=== PATIENT | female | born 1955 | race African-American/Black ===

== ENCOUNTER 2016-12-18 21:18 | Emergency (ER) | payer OTHER ==
[~2016-12-18] VITALS: Ht 152.4 cm; Wt 68.2 kg
[~2016-12-18 21:18] MED LIST: ACYCLOVIR400 MG PO; AMLODIPINE5 MG PO; AMOX/K CLAV875 M1 PO; ASPIRIN EC81 MG PO; ATENOLOL100 MG PO; CYCLOBENZAPR10 MG PO; DIABETA5 MG PO; FERROUS SULF325 M1 PO; FLUOXETINE20 MG PO; FLUTICASONE50 MCG; FUROSEMIDE40 MG PO; HUMIRA10 MG/0.2 SC; HYDROCHLOROT12.5 MG PO; HYDROXYCHLOR200 M1 PO; IBUPROFEN600 MG PO; KLOR-CON 1010 ME1 PO; LEVAQUIN500 MG PO; LISINOPRIL20 MG PO; LOPID600 MG PO; LORATADINE10 M1 PO; LORTAB5 PO; LOTRISONE CREAM15 GM EX; MACROBID100 MG OR; METFORMIN500 MG PO; METHYLPRED4 MG PO; MULTI VIT PO; NAPROSYN500 MG PO; NAPROXEN250 MG PO; NYAMYC100000 MG EX; PATADAY OU; PRAVASTATIN20 MG PO; PREDNISONE10 MG PO; PROAIR HFA IN; QVAR80 MCG IN; TRAMADOL HCL50 MG PO; [UNRECOGNIZED DRUG - REMARK]
[2016-12-18 22:01] LABS: HEMATOCRIT 31.5 % (37.0-47.0); HEMOGLOBIN 9.7 g/dl (12.0-16.0); IMMATURE GRANULOCYTES 0.5 % (0.0-1.0); MEAN CELL VOLUME 69.1 fL CALC (80.0-100.0); MEAN CORPUSCULAR HGB 21.3 pG CALC (26.0-32.0); MEAN CORPUSCULAR HGB CONC 30.8 g/L CALC (32.0-36.0); NEUT# 8.48 thou/uL (2.00-7.15); RED BLOOD COUNT 4.56 mill/uL (4.20-5.60); RED CELL DISTRI WIDTH 21.6 % (11.5-15.5)
[2016-12-18 22:19] LABS: INTERNATIONAL NORMALIZED RATIO 1.4 RATIO (0.7-1.3); PROTHROMBIN TIME 15.9 SECONDS (9.0-12.5)
[2016-12-18 23:10] LABS: ALBUMIN 3.2 g/dL (3.2-5.0); ALKALINE PHOSPHATASE 85 u/l (38-126); ANION GAP 15 (6-22 (CALC)); BILIRUBIN, TOTAL 0.9 mg/dL (0.0-1.4); BUN 10 mg/dL (8-23); BUN/CREATININE RATIO 18 (12-20 (CALC)); CALCIUM 7.2 mg/dL (8.4-10.2); CARBON DIOXIDE 28 mmol/l (22-30); CHLORIDE 101 mmol/l (95-108); CREATININE 0.5 mg/dL (0.5-1.0); GFR > 60 ML/MIN (>=60 (CALC)); GFR FOR AFR.AMER. > 60 ML/MIN (>=60 (CALC)); GLUCOSE 104 mg/dL (82-115); POTASSIUM 2.8 mmol/l (3.5-5.1); SGOT/AST 28 u/l (9-36); SGPT/ALT 15 u/l (11-66); SODIUM 142 mmol/l (137-146); TOTAL PROTEIN 8.6 g/dL (6.3-8.2)
[2016-12-18 23:22] LABS: MYOGLOBIN 72 ng/mL (0 - 62)
[2016-12-19 01:25] VITALS: BP 128/80
== END 2016-12-19 01:35 | disposition short-term general hospital (02) | DRG 291 ==
LOC: ED 21:18
PROVIDERS: Emergency Medicine
DX: I50.9 Heart failure, unspecified (principal); J18.9 Pneumonia, unspecified organism; Z99.81 Dependence on supplemental oxygen; J44.1 Chronic obstructive pulmonary disease with (acute) exacerbation; R79.89 Other specified abnormal findings of blood chemistry; R50.9 Fever, unspecified; R05 Cough; R06.02 Shortness of breath; R07.9 Chest pain, unspecified; I10 Essential (primary) hypertension; Z91.81 History of falling

== ENCOUNTER 2017-04-18 19:35 | Emergency (ER) | payer OTHER ==
[~2017-04-18] VITALS: Ht 160 cm; Wt 62.2 kg
[2017-04-18 20:35] LABS: HEMATOCRIT 35.4 % (37.0-47.0); HEMOGLOBIN 10.4 g/dl (12.0-16.0); IMMATURE GRANULOCYTES 0.2 % (0.0-1.0); MEAN CELL VOLUME 70.7 fL CALC (80.0-100.0); MEAN CORPUSCULAR HGB 20.8 pG CALC (26.0-32.0); MEAN CORPUSCULAR HGB CONC 29.4 g/L CALC (32.0-36.0); NEUT# 5.44 thou/uL (2.00-7.15); RED BLOOD COUNT 5.01 mill/uL (4.20-5.60); RED CELL DISTRI WIDTH 21.5 % (11.5-15.5)
[2017-04-18 20:49] LABS: ALBUMIN 3.3 g/dL (3.2-5.0); ALKALINE PHOSPHATASE 101 u/l (38-126); ANION GAP 16 (6-22 (CALC)); BILIRUBIN, TOTAL 0.5 mg/dL (0.0-1.4); BUN 14 mg/dL (8-23); BUN/CREATININE RATIO 23 (12-20 (CALC)); CARBON DIOXIDE 24 mmol/l (22-30); CHLORIDE 105 mmol/l (95-108); CREATININE 0.6 mg/dL (0.5-1.0); GFR > 60 ML/MIN (>=60 (CALC)); GFR FOR AFR.AMER. > 60 ML/MIN (>=60 (CALC)); POTASSIUM 4.7 mmol/l (3.5-5.1); SGOT/AST 22 u/l (9-36); SGPT/ALT 18 u/l (11-66); SODIUM 141 mmol/l (137-146)
[2017-04-18] MEDS ORDERED: LORTAB 1010 MG PO (23:05)
[2017-04-18] MEDS ORDERED: AMOX/K CLAV875 M1 PO (23:05)
[2017-04-18 23:29] VITALS: BP 195/95
[2017-05-02] MEDS ORDERED: CEFTRIAXONE2 G1 IJ (17:04)
== END 2017-04-18 23:22 | disposition home or self-care (01) | DRG 159 ==
LOC: ED 19:35
PROVIDERS: Emergency Medicine
DX: K04.7 Periapical abscess without sinus (principal); I11.0 Hypertensive heart disease with heart failure; I50.9 Heart failure, unspecified; Z99.81 Dependence on supplemental oxygen; E11.9 Type 2 diabetes mellitus without complications; J44.9 Chronic obstructive pulmonary disease, unspecified; M19.90 Unspecified osteoarthritis, unspecified site; S02.82XD Fracture of other specified skull and facial bones, left side, subsequent encounter for fracture with routine healing; W01.0XXD Fall on same level from slipping, tripping and stumbling without subsequent striking against object, subsequent encounter
CPT/HCPCS: Q9967

== ENCOUNTER 2017-07-26 15:35 | Emergency (ER) | payer OTHER ==
[~2017-07-26] VITALS: Ht 160 cm; Wt 65.0 kg
[~2017-07-26 15:35] MED LIST changes: +CEFTRIAXONE2 G1 IJ; +LORTAB 1010 MG PO
[2017-07-26 16:41] LABS: HEMATOCRIT 38.5 % (37.0-47.0); HEMOGLOBIN 11.5 g/dl (12.0-16.0); IMMATURE GRANULOCYTES 0.3 % (0.0-1.0); MEAN CELL VOLUME 73.3 fL CALC (80.0-100.0); MEAN CORPUSCULAR HGB 21.9 pG CALC (26.0-32.0); MEAN CORPUSCULAR HGB CONC 29.9 g/L CALC (32.0-36.0); NEUT# 4.75 thou/uL (2.00-7.15); RED BLOOD COUNT 5.25 mill/uL (4.20-5.60); RED CELL DISTRI WIDTH 22.4 % (11.5-15.5)
[2017-07-26 17:02] LABS: ALBUMIN 2.8 g/dL (3.2-5.0); BILIRUBIN, TOTAL 0.8 mg/dL (0.0-1.4); BUN 16 mg/dL (8-23); BUN/CREATININE RATIO 19 (12-20 (CALC)); CARBON DIOXIDE 26 mmol/l (22-30); CHLORIDE 102 mmol/l (95-108); CREATININE 0.8 mg/dL (0.5-1.0); GFR > 60 ML/MIN (>=60 (CALC)); GFR FOR AFR.AMER. > 60 ML/MIN (>=60 (CALC)); SGOT/AST 27 u/l (9-36); SGPT/ALT 22 u/l (11-66); SODIUM 139 mmol/l (137-146)
[2017-07-26 17:03] LABS: ALKALINE PHOSPHATASE 223 u/l (38-126); ANION GAP 15 (6-22 (CALC)); POTASSIUM 3.5 mmol/l (3.5-5.1)
[2017-07-26] MEDS ORDERED: ACYCLOVIR400 MG PO (17:17)
[2017-07-26] MEDS ORDERED: PREDNISONE10 MG PO (17:18)
[2017-07-26] MEDS ORDERED: ATORVASTATIN CA40 MG PO (17:19)
[2017-07-26] MEDS ORDERED: FLOVENT HF110 MCG/AC (17:21)
[2017-07-26] MEDS ORDERED: EYE DROP3 OP (17:22)
[2017-07-26 17:32] LABS: TSH, 3RD GENERATION 4.12 uIU/mL (0.47 - 4.68)
[2017-07-26 18:52] VITALS: BP 203/108
== END 2017-07-26 18:55 | disposition short-term general hospital (02) | DRG 293 ==
LOC: ED 15:35
PROVIDERS: Emergency Medicine
PROC: 0T9B70Z Drainage of Bladder with Drainage Device, Via Natural or Artificial Opening (ICD-10-PCS; principal; 2017-07-26)
DX: I11.0 Hypertensive heart disease with heart failure (principal); E11.9 Type 2 diabetes mellitus without complications; R06.89 Other abnormalities of breathing; I50.9 Heart failure, unspecified; M19.90 Unspecified osteoarthritis, unspecified site; J44.9 Chronic obstructive pulmonary disease, unspecified
CPT/HCPCS: J1650

== ENCOUNTER 2017-09-20 22:20 | Emergency (ER) | payer OTHER ==
[~2017-09-20] VITALS: Ht 160 cm; Wt 59.0 kg
[~2017-09-20 22:20] MED LIST changes: +ATORVASTATIN CA40 MG PO; +EYE DROP3 OP; +FLOVENT HF110 MCG/AC
[2017-09-20 23:32] LABS: HEMATOCRIT 37.6 % (37.0-47.0); HEMOGLOBIN 10.9 g/dl (12.0-16.0); IMMATURE GRANULOCYTES 0.4 % (0.0-1.0); MEAN CELL VOLUME 76.9 fL CALC (80.0-100.0); MEAN CORPUSCULAR HGB 22.3 pG CALC (26.0-32.0); NEUT# 13.68 thou/uL (2.00-7.15); RED BLOOD COUNT 4.89 mill/uL (4.20-5.60); RED CELL DISTRI WIDTH 24.6 % (11.5-15.5)
[2017-09-20 23:44] LABS: ALBUMIN 3.1 g/dL (3.2-5.0); BILIRUBIN, TOTAL 0.9 mg/dL (0.0-1.4); CREATININE 1.2 mg/dL (0.5-1.0); POTASSIUM 3.4 mmol/l (3.5-5.1); TOTAL PROTEIN 8.7 g/dL (6.3-8.2)
[2017-09-21 00:26] LABS: URINE BILIRUBIN - DIPSTICK NEGATIVE (NEGATIVE); URINE BLOOD DIPSTICK SMALL (NEGATIVE); URINE COLOR YELLOW; URINE GLUCOSE - DIPSTICK NEGATIVE (NEGATIVE); URINE KETONE NEGATIVE (NEGATIVE); URINE NITRITE - DIPSTICK NEGATIVE (Negative); URINE PROTEIN - DIPSTICK 100 mg/dL (NEG-TRACE); URINE SPECIFIC GRAVITY 1.015; URINE UROBILINOGEN - DIPSTICK 0.2 E.U./dL (0.2)
[2017-09-21 00:27] LABS: URINE CLARITY SL CLOUDY; URINE LEUK ESTERASE SMALL (NEGATIVE)
[2017-09-21 00:42] LABS: URINE BACTERIA FEW hpf; URINE SQUAMOUS EPITHELIAL CELL FEW EPI/hpf (0-FEW); URINE TRICHOMONAS FEW hpf
[2017-09-21 01:20] VITALS: BP 173/95
--- NOTE | 2017-09-24 07:35 | NUR ---
FINAL CULTURE RESULTS [facility] 09/23/17
== END 2017-09-21 01:25 | disposition short-term general hospital (02) ==
LOC: ED 22:20
PROVIDERS: Emergency Medicine
DX: I50.9 Heart failure, unspecified (principal); J18.9 Pneumonia, unspecified organism; I16.1 Hypertensive emergency; R04.2 Hemoptysis; R79.89 Other specified abnormal findings of blood chemistry; E87.2 Acidosis; R06.02 Shortness of breath; R05 Cough; R53.1 Weakness